=== PATIENT | female | born 1985 | race Caucasian/White ===

== ENCOUNTER 2019-03-31 13:08 | Inpatient (IN) | payer MEDICAID ==
[~2019-03-31] VITALS: Ht 177.8 cm; Wt 57.0 kg
[2019-03-31 13:40] LABS: Basophils # (auto) 0 uL; Basophils % (auto) 0.3 % (0.0-2.0); Eosinophils # (auto) 0 uL; Eosinophils % (auto) 0.1 % (0.0-7.0); Hematocrit 43.4 % (36.0-46.0); Lymphocytes % (auto) 12.4 % (10.0-50.0); Mean Corpuscular Hemoglobin 31.9 pg (28.0-32.0); Mean Corpuscular Hgb Conc. 34.6 g/dL (32.0-36.0); Mean Corpuscular Volume 92.2 fL (80.0-100.0); Monocytes # (auto) 0.6 uL; Monocytes % (auto) 7.8 % (0.0-12.0); Neutrophils # (auto) 6.2 uL; Neutrophils % (auto) 79.4 % (37.0-80.0); Platelet Count (auto) 228 10^3/uL (140-450); Red Cell Distribution Width 12.4 % (11.8-14.3); White Blood Cell 7.8 10^3/uL (4.4-10.8)
[2019-03-31 13:55] LABS: Calcium 9.9 mg/dL (8.5-10.1); Potassium 3.9 mmol/L (3.5-5.1)
[2019-03-31 13:58] LABS: Albumin 4.4 g/dL (3.4-5.0); BUN/Creatinine Ratio 22.2
[2019-03-31 14:01] LABS: Bilirubin, Total 0.7 mg/dL (0.2-1.0); Total Protein 8.5 g/dL (6.4-8.2)
[2019-03-31 15:48] LABS: Urine Bacteria NONE SEEN /hpf (None Seen); Urine Blood 1+ /uL (Negative); Urine Mucus FEW (None Seen); Urine Specific Gravity 1.032 (1.001-1.035); Urine WBC 10 /hpf (0 - 5)
[2019-03-31] MEDS ORDERED: SODIUM CHLORIDE 0.9% 1,000 ML IVB ONE (16:13)
[2019-03-31 16:45] LABS: Magnesium 2.3 mg/dL (1.6-2.6)
[2019-03-31] MEDS ORDERED: SODIUM CHLORIDE 0.9% 1,000 ML IV ONE (17:30)
[2019-03-31] MEDS ORDERED: cefTRIAXone 1GM/50ML D5W 50 ML IV ONE (17:30)
[2019-03-31] MEDS: PROMETHAZINE HCL 25 MG/ML 1ML IV PRN (17:53)
[2019-03-31] MEDS ORDERED: LACTATED RINGER'S 1,000 ML IV SCH (20:45)
[2019-03-31] MEDS: LACTATED RINGER'S 1,000 ML IV SCH (20:59)
--- NOTE | 2019-03-31 22:00 | NUR ---
MS admit from ER CHUCK AKERS admitted to tele/MS. Patient oriented to Chayo GarcíaRN primary RN, unit, room 291, bed B, and unit policies regarding patient care and visiting hours.Patient is alert and oriented x 4, on room air. No acute s/s of distress/ SOB or pain. No N/V/D noted. Patient weighed by bed scale and encouraged to call if they need something. All questions and concerns addressed, patient verbalized understanding. Bed in lowest locked position, side rails up x 2, call light within reach. Will continue to monitor Q1hr and PRN. Note:
[2019-03-31 22:18] VITALS: BP 116/69
[2019-04-01 01:14] VITALS: BP 116/69
[2019-04-01] MEDS ORDERED: PROMETHAZINE IV SCH (03:30)
[2019-04-01] MEDS ORDERED: LACTATED RINGER S IV SCH (03:30)
[2019-04-01 05:42] VITALS: BP 105/66
[2019-04-01 06:19] LABS: Basophils # (auto) 0 uL; Basophils % (auto) 0.4 % (0.0-2.0); Eosinophils # (auto) 0.1 uL; Eosinophils % (auto) 1.2 % (0.0-7.0); Hematocrit 31.7 % (36.0-46.0); Lymphocytes # (auto) 1.3 uL; Lymphocytes % (auto) 27.2 % (10.0-50.0); Mean Corpuscular Hemoglobin 32.5 pg (28.0-32.0); Mean Corpuscular Hgb Conc. 34.8 g/dL (32.0-36.0); Mean Corpuscular Volume 93.2 fL (80.0-100.0); Monocytes # (auto) 0.5 uL; Monocytes % (auto) 11.2 % (0.0-12.0); Neutrophils # (auto) 2.9 uL; Nucleated Red Blood Cells % 0.1 %; Platelet Count (auto) 160 10^3/uL (140-450); White Blood Cell 4.8 10^3/uL (4.4-10.8)
[2019-04-01 06:35] LABS: Potassium 3.4 mmol/L (3.5-5.1)
[2019-04-01 06:40] LABS: BUN/Creatinine Ratio 23.3; Bilirubin, Total 0.5 mg/dL (0.2-1.0); Calcium 8.7 mg/dL (8.5-10.1); Total Protein 5.7 g/dL (6.4-8.2)
--- NOTE | 2019-04-01 07:08 | NUR ---
Closing shift note Patient resting in bed, on room air, ambulatory. Patient denies N/V, no acute s/s of distress, SOB, or pain. Bed in lowest locked position, side rails up x 2, call light within reach. Endorsed care to dayshift RN.
--- NOTE | 2019-04-01 07:45 | NUR ---
Opening Patient in bed asleep, bed in lowest position, call light within reach. No distress noted at this time. Will f/u with morning assessment. Potassium 3.4 UA 2 + leuks OB US shown corpus luteum cyst in L ovary focal subchorionic hemorrhage Will continue to monitor this patient
[2019-04-01] MEDS: cefTRIAXone 1GM/50ML D5W 50 ML IV SCH (09:45)
[2019-04-01 09:51] VITALS: BP 97/54
[2019-04-01 12:00] VITALS: BP 102/62
--- NOTE | 2019-04-01 12:21 | NUR ---
md jackson at bedside, talked about gradually introducing fluids to patients tolerate and orders to advance as tolerated. new orders for dramamine anti nausea/dizziness medications, tsh levels
--- NOTE | 2019-04-01 14:25 | NUR ---
nurse note md hager was informed regarding md jackson hospitalist consult, md hager states he will assign the patient to a hospitalist tomorrow.
--- NOTE | 2019-04-01 14:27 | NUR ---
nurse note told md jackson about no available dramamine here in house, only meclizine, he states to just give zofran INSTEAD zofran mg q 4 prn
[2019-04-01] MEDS: LACTATED RINGER'S 1,000 ML IV SCH ×2 (14:32→22:57)
[2019-04-01 16:47] VITALS: BP 105/73
--- NOTE | 2019-04-01 19:00 | NUR ---
Opening Shift Note Assumed care of patient, awake and alert. No S/S of distress/SOB or pain. Instructed on POC and to call for assist PRN, will continue to monitor for changes Q1hr and PRN.
[2019-04-01] MEDS: PROMETHAZINE IV SCH (21:31)
[2019-04-01] MEDS: LACTATED RINGER S IV SCH (21:31)
[2019-04-01 22:00] VITALS: BP_SYST 110; BP_SYST 119; BP_DIAS 57; BP_DIAS 66
[2019-04-02] VITALS (7 sets, daily range): BP systolic 103–165; BP diastolic 62–71
[2019-04-02 06:06] LABS: Basophils # (auto) 0 uL; Basophils % (auto) 0.4 % (0.0-2.0); Eosinophils # (auto) 0.1 uL; Eosinophils % (auto) 1.1 % (0.0-7.0); Hematocrit 32.5 % (36.0-46.0); Hemoglobin 11.1 g/dL (12.2-16.2); Lymphocytes # (auto) 1.4 uL; Lymphocytes % (auto) 28.2 % (10.0-50.0); Mean Corpuscular Hemoglobin 31.8 pg (28.0-32.0); Mean Corpuscular Hgb Conc. 34.1 g/dL (32.0-36.0); Mean Corpuscular Volume 93.2 fL (80.0-100.0); Monocytes # (auto) 0.6 uL; Monocytes % (auto) 12.3 % (0.0-12.0); Neutrophils # (auto) 2.8 uL; Nucleated Red Blood Cells % 0.1 %; Platelet Count (auto) 160 10^3/uL (140-450); Red Blood Cells 3.48 10^6/uL (4.0-5.20); Red Cell Distribution Width 12.1 % (11.8-14.3); White Blood Cell 4.9 10^3/uL (4.4-10.8)
[2019-04-02 06:22] LABS: Albumin 3.1 g/dL (3.4-5.0); BUN/Creatinine Ratio 16.7; Calcium 8.5 mg/dL (8.5-10.1); Potassium 3.6 mmol/L (3.5-5.1)
[2019-04-02 06:24] LABS: Bilirubin, Total 0.5 mg/dL (0.2-1.0); Total Protein 5.9 g/dL (6.4-8.2)
--- NOTE | 2019-04-02 07:07 | NUR ---
Opening Shift Note Assumed care of patient. Pt awake, alert and oriented x4. No S/S of distress or SOB. Pt denies any pain at this time, but c/o N/V. Bed in lowest locked position with side rails up x2. Instructed on POC and to call for assist PRN, will continue to monitor for changes Q1hr and PRN.
[2019-04-02] MEDS: cefTRIAXone 1GM/50ML D5W 50 ML IV SCH (09:24)
[2019-04-02] MEDS: PROMETHAZINE HCL 25 MG/ML 1ML IV PRN (09:24)
--- NOTE | 2019-04-02 11:17 | NUR ---
DR. MENDEZ AT BEDSIDE DISCUSSING POC WITH PT.
[2019-04-02] MEDS: LACTATED RINGER'S 1,000 ML IV SCH (12:00)
[2019-04-02] MEDS: PROMETHAZINE IV SCH (12:12)
[2019-04-02] MEDS: LACTATED RINGER S IV SCH (12:12)
[2019-04-02] MEDS ORDERED: FAMOTIDINE (10MG/ML) 2ML VL IV ONE (13:45)
--- NOTE | 2019-04-02 14:22 | NUR ---
Nutrition Consult/assessment Notes please see attached link for complete assessment Est. Needs IBW 68k- 2040 kcal (25-30 kcal/kgBW), 68-81 gms pro (1.0-1.2 gms/kgBW). Will continue to monitor pertinent labs and reassess nutrient need prn Addendum: 04/02/19 at [address] Amended: Links added.
[2019-04-02] MEDS: ENSURE CLEAR Mixed Berry 8oz Carton PO SCH (18:00)
--- NOTE | 2019-04-02 19:12 | NUR ---
Closing Shift Note Patient, awake and alert, resting in bed. No S/S of distress or SOB. Bed in lowest and locked position with side rails up x2. Will endorse care to welder 2nd shift RN.
--- NOTE | 2019-04-02 19:15 | NUR ---
Opening Shift Note Received report from Cheryl HERNANDEZ, assumed care of patient. Patient awake and alert, with and visitors at bed side. No S/S of distress/SOB or pain. Patient denies nausea at this moment. Instructed on POC and to call for assist PRN, will continue to monitor for changes PRN.
[2019-04-02] MEDS: FAMOTIDINE (10MG/ML) 2ML VL IV SCH (21:56)
[2019-04-03 04:56] VITALS: BP 106/58
--- NOTE | 2019-04-03 06:22 | NUR ---
ROUNDS PATIENT RESTING IN BED WITH EYES CLOSED. NO S/S OF PAIN OR DISTRESS. BREATHING IS EVEN AND UNLABORED AT 18BPM AND SATING AT 98% ON ROOM AIR. CALL LIGHT WITH IN REACH.
[2019-04-03 06:25] LABS: Basophils # (auto) 0 uL; Basophils % (auto) 0.4 % (0.0-2.0); Eosinophils # (auto) 0.1 uL; Hematocrit 32.7 % (36.0-46.0); Hemoglobin 11.2 g/dL (12.2-16.2); Lymphocytes # (auto) 1.3 uL; Lymphocytes % (auto) 27.4 % (10.0-50.0); Mean Corpuscular Hgb Conc. 34.3 g/dL (32.0-36.0); Mean Corpuscular Volume 93.3 fL (80.0-100.0); Monocytes # (auto) 0.5 uL; Monocytes % (auto) 11.5 % (0.0-12.0); Neutrophils # (auto) 2.8 uL; Neutrophils % (auto) 58.7 % (37.0-80.0); Platelet Count (auto) 171 10^3/uL (140-450); Red Cell Distribution Width 12.1 % (11.8-14.3); White Blood Cell 4.7 10^3/uL (4.4-10.8)
[2019-04-03 06:44] LABS: Albumin 3.1 g/dL (3.4-5.0); Calcium 8.7 mg/dL (8.5-10.1); Potassium 3.6 mmol/L (3.5-5.1)
[2019-04-03 06:54] LABS: BUN/Creatinine Ratio 9.1; Bilirubin, Total 0.3 mg/dL (0.2-1.0)
[2019-04-03] MEDS: LACTATED RINGER'S 1,000 ML IV SCH ×2 (06:57→14:00)
--- NOTE | 2019-04-03 07:45 | NUR ---
Opening Shift Note Assumed care of patient, Pt asleep in bed awakes to name. No S/S of distress or SOB. Pt denies any pain at this time. Bed in lowest and locked position with side rails up x2. Instructed on POC and to call for assist PRN, will continue to monitor for changes Q1hr and PRN.
[2019-04-03 08:07] VITALS: BP 103/64
[2019-04-03 09:00] VITALS: BP 103/64
[2019-04-03] MEDS: FAMOTIDINE (10MG/ML) 2ML VL IV SCH ×2 (09:54→21:13)
[2019-04-03] MEDS: cefTRIAXone 1GM/50ML D5W 50 ML IV SCH (09:54)
[2019-04-03] MEDS: ENSURE CLEAR Mixed Berry 8oz Carton PO SCH ×3 (09:55→19:13)
--- NOTE | 2019-04-03 10:30 | NUR ---
PT TOLERATED HER FULL LIQUID DIET FOR BREAKFAST WITH NO NAUSEA OR VOMITING, PT'S DIET ADVANCED TO SOFT DIET PER DOCTOR'S ORDERS.
[2019-04-03 13:00] VITALS: BP 105/61
[2019-04-03] MEDS: LACTATED RINGER S IV SCH ×3 (13:20)
[2019-04-03] MEDS: PROMETHAZINE IV SCH ×3 (13:20)
[2019-04-03 16:38] VITALS: BP 109/73
--- NOTE | 2019-04-03 19:21 | NUR ---
Closing Shift Note Patient, awake and alert, resting in bed. No S/S of distress or SOB. Bed in lowest and locked position with side rails up x2. Will endorse care to retail shift supervisor RN.
--- NOTE | 2019-04-03 19:45 | NUR ---
assumed care, pt. awake, relative at bedside, no c/o pain and nausea at this time, no sob.
[2019-04-03 21:29] VITALS: BP 107/66
[2019-04-04] MEDS: LACTATED RINGER S IV SCH (02:03)
[2019-04-04] MEDS: PROMETHAZINE IV SCH (02:03)
[2019-04-04] MEDS: LACTATED RINGER'S 1,000 ML IV SCH (03:00)
[2019-04-04 04:56] VITALS: BP 99/54
[2019-04-04 06:59] LABS: Basophils # (auto) 0 uL; Basophils % (auto) 0.3 % (0.0-2.0); Eosinophils # (auto) 0.1 uL; Eosinophils % (auto) 1.5 % (0.0-7.0); Hematocrit 33.9 % (36.0-46.0); Hemoglobin 11.9 g/dL (12.2-16.2); Lymphocytes # (auto) 1.2 uL; Lymphocytes % (auto) 28.7 % (10.0-50.0); Mean Corpuscular Hemoglobin 32.5 pg (28.0-32.0); Mean Corpuscular Volume 92.9 fL (80.0-100.0); Monocytes # (auto) 0.5 uL; Monocytes % (auto) 11.5 % (0.0-12.0); Neutrophils # (auto) 2.5 uL; Platelet Count (auto) 170 10^3/uL (140-450); Red Blood Cells 3.65 10^6/uL (4.0-5.20); White Blood Cell 4.3 10^3/uL (4.4-10.8)
[2019-04-04 07:16] LABS: Calcium 8.8 mg/dL (8.5-10.1); Potassium 3.6 mmol/L (3.5-5.1)
[2019-04-04 07:19] LABS: BUN/Creatinine Ratio 11.6
[2019-04-04 07:21] LABS: Bilirubin, Total 0.4 mg/dL (0.2-1.0)
--- NOTE | 2019-04-04 07:30 | NUR ---
Opening Shift Note Assumed care of patient, resting comfortably. No S/S of distress/SOB or pain. Instructed on POC and to call for assist PRN, will continue to monitor for changes Q1hr and PRN. Bed in low and locked position, rails up x2, no-slip socks on.
[2019-04-04 08:00] VITALS: BP 108/69
[2019-04-04] MEDS: FAMOTIDINE (10MG/ML) 2ML VL IV SCH (09:44)
[2019-04-04] MEDS: cefTRIAXone 1GM/50ML D5W 50 ML IV SCH (09:44)
--- NOTE | 2019-04-04 10:25 | NUR ---
PATIENT TOLERATING DIET TOLERATED SOFT DIET, NO NAUSEA NO VOMITING, ADVANCED DIET TO REGULAR PER MD ORDERS, WILL CONTINUE TO MONITOR.
--- NOTE | 2019-04-04 11:05 | NUR ---
DR MENDEZ AT BEDSIDE ORDERS FOR DISCHARGE, PATIENT NOT COMFORTABLE TAKING ZOFRAN AFTER MEDICATION RISKS AND BENEFITS EXPLAINED BY MD, NO PRESCRIPTION WRITTEN AT THIS TIME.
[2019-04-04 11:14] VITALS: BP 108/69
[2019-04-04 12:00] VITALS: BP 107/60
[2019-04-04] MEDS ORDERED: Ensure Enlive Strawberry 8oz Bottle PO SCH (12:00)
--- NOTE | 2019-04-04 12:39 | NUR ---
DISCHARGE Discharge instructions given as ordered. Encourage to follow up with PMD as instructed. All questions and concerns addressed. Patient verbalized understanding. Medication reconciliation form completed and copy given to patient. IV removed with catheter intact, pressure dressing applied. Patient taken to vehicle via wheelchair with all personal belongings, accompanied by staff and family member. No distress noted at time of departure.
== END 2019-04-04 12:39 | disposition home or self-care (01) | DRG 566 ==
LOC: ER 13:14 → OVERFLOW 20:54 → WEST WING 21:23
PROVIDERS: ADMIT Specialist; ATTEND Specialist
DX: O21.1 Hyperemesis gravidarum with metabolic disturbance (principal); M06.9 Rheumatoid arthritis, unspecified; Z3A.08 8 weeks gestation of pregnancy; O99.281 Endocrine, nutritional and metabolic diseases complicating pregnancy, first trimester; Z87.81 Personal history of (healed) traumatic fracture
CPT/HCPCS: 36415; 76801; 80053; 81001; 82150; 83690; 83735; 84443; 84702; 85025; 86431; 87081; 94761; 96361; 96365; 96375; G0378; J0696; J3490

== ENCOUNTER 2022-08-31 15:31 | Emergency (ER) | payer MEDICAID ==
[~2022-08-31] VITALS: Ht 175.3 cm; Wt 59.1 kg
[2022-08-31 16:53] LABS: Basophils # (auto) 0 10 ^3/uL (0-0.2); Basophils % (auto) 0.5 % (0.0-2.0); Eosinophils # (auto) 0.1 10 ^3/uL (0-0.8); Eosinophils % (auto) 1.2 % (0.0-7.0); Hematocrit 38.3 % (36.0-46.0); Hemoglobin 13.2 g/dL (12.2-16.2); Lymphocytes % (auto) 9.8 % (10.0-50.0); Mean Corpuscular Hemoglobin 33.3 pg (28.0-32.0); Mean Corpuscular Hgb Conc. 34.4 g/dL (32.0-36.0); Mean Corpuscular Volume 96.9 fL (80.0-100.0); Monocytes # (auto) 0.7 10 ^3/uL (0-1.3); Monocytes % (auto) 6.6 % (0.0-12.0); Neutrophils # (auto) 8.4 10 ^3/uL (1.6-8.6); Neutrophils % (auto) 81.9 % (37.0-80.0); Nucleated Red Blood Cells % 0.1 %; Red Blood Cells 3.95 10^6/uL (4.0-5.20); Red Cell Distribution Width 14.4 % (11.8-14.3); White Blood Cell 10.3 10^3/uL (4.4-10.8)
[2022-08-31 17:13] LABS: Albumin 3.4 g/dL (3.4-5.0); Calcium 9.1 mg/dL (8.5-10.1)
[2022-08-31 17:16] LABS: BUN/Creatinine Ratio 17.1; Bilirubin, Total 0.2 mg/dL (0.2-1.0); Total Protein 7.4 g/dL (6.4-8.2)
[2022-08-31] MEDS ORDERED: NAP500T PO ×6 (21:14→22:18)
[2022-08-31 21:51] VITALS: BP 138/76
== END 2022-08-31 21:56 | disposition home or self-care (01) ==
LOC: ER 15:31
DX: M06.9 Rheumatoid arthritis, unspecified (principal); M19.90 Unspecified osteoarthritis, unspecified site; Z88.0 Allergy status to penicillin
CPT/HCPCS: 36415; 72125; 80053; 84702; 85025